=== PATIENT | female | born 1995 | race Caucasian/White ===

== ENCOUNTER → 2021-12-18 12:09 | Outpatient (CLI) | payer OTHER, SELFPAY ==
[2021-12-18 12:57] LABS: Add Manual Diff / Slide Review NO; Basophils Absolute Auto 100 /uL (0-100); Basophils Percent Auto 0.6 % (0-2); Eosinophils Absolute Auto 100 /uL (0-450); Eosinophils Percent Auto 1.5 % (2-4); Hematocrit 38.7 % (36-46); Hemoglobin 13.5 g/dL (12.0-16.0); Lymphocytes Absolute Auto 2300 /uL (1100-4500); Lymphocytes Percent Auto 26.8 % (25-40); Mean Corpuscular HGB Conc 34.9 % (30-36); Mean Corpuscular Hemoglobin 30.5 PG (26-34); Mean Corpuscular Volume 87.3 fL (80-100); Monocytes Absolute Auto 500 /uL (0-900); Monocytes Percent Auto 5.3 % (3-14); Neutrophils Absolute Auto 5700 /uL (1500-7000); Neutrophils Percent Auto 65.8 % (50-75); Platelet Count 284 X10^3/uL (150-400); Red Blood Cell Count 4.43 X10^6/uL (4.0-5.2); Red Cell Distribution Width 15.4 % (11.6-14.8); White Blood Cell Count 8.7 X10^3/uL (4.5-11.0)
[2021-12-18 13:40] LABS: Free T3, Triiodothyronine Free 3.37 pg/mL (2.77-5.27); Free T4, Direct Thyroxine 1.18 ng/dL (0.78-2.19)
[2021-12-18 13:53] LABS: Thyroid Stimulating Hormone 1.21 uIU/mL (0.47-4.68)
[2021-12-18 17:18] LABS: Hepatitis B Surface Antigen NEGATIVE s/c (NEGATIVE); Rubella Antibody IgG 57.1 IU/mL (>15)
[2021-12-18 17:34] LABS: HIV 1 & 2 Ab/Ag 4th Gen Combo NEGATIVE (NEGATIVE); Hep C Virus Ab w/Reflex Quant NEGATIVE s/c (NEGATIVE)
[2021-12-19 06:25] LABS: RPR Screen Non Reactive (Non Reactive)
[2021-12-19 12:02] LABS: Varicella IgG Antibody 412 index (Immune >165)
== END ==
PROVIDERS: PCP Physician Assistant; Referring Provider Obstetrics & Gynecology; Visit Provider Obstetrics & Gynecology
DX: Z34.01 Encounter for supervision of normal first pregnancy, first trimester (principal); E03.9 Hypothyroidism, unspecified; Z3A.09 9 weeks gestation of pregnancy
CPT/HCPCS: 36415; 80055; 84439; 84443; 84481; 86787; 86803; 86850; 86900; 86901; 87389

== ENCOUNTER → 2022-01-08 14:28 | Outpatient (CLI) | payer OTHER, SELFPAY ==
[2022-01-08 19:36] LABS: Urine N gonorrhoeae NOT DETECTED
[2022-01-08 20:00] LABS: Urine Chlamydia NOT DETECTED
== END ==
PROVIDERS: PCP Physician Assistant; Visit Provider Physician Assistant Medical
DX: Z34.01 Encounter for supervision of normal first pregnancy, first trimester (principal); Z3A.13 13 weeks gestation of pregnancy
CPT/HCPCS: 87491; 87591

== ENCOUNTER 2022-02-05 14:42 | Emergency (ER) | payer OTHER, SELFPAY ==
[2022-02-05] VITALS (18 sets, daily range): BP systolic 98–141; BP diastolic 53–79; PULSE 46–86; RESP 16–29; O2SAT 98–100; BMI 20.1
--- NOTE | 2022-02-05 14:50 | DI.RAD.S_ITS ---
PROCEDURE: XR CHEST 1V INDICATIONS: chest pain TECHNIQUE: One view of the chest was acquired. COMPARISON: None. FINDINGS: Surgical changes and devices: None. Lungs and pleura: Lungs are clear. No pleural effusions or pneumothorax. Mediastinum: Mediastinal contours appear normal. Heart size is normal. Bones and chest wall: No suspicious bony lesions. Overlying soft tissues appear unremarkable. IMPRESSION: No acute process. Dictated by: Christine Yu M.D. on 02/05/2022 at 15:44 Approved by: Christine Yu M.D. on 02/05/2022 at 15:44
--- NOTE | 2022-02-05 15:10 | ED_ITS ---
HPI - Arrhythmia/Palpitations General Chief Complaint: Arrhythmia/Palpitations Stated Complaint: High heartrate, abnormal ekg per dr. bowen Time Seen by Provider: 02/05/22 14:55 Source: patient Mode of arrival: Ambulatory Limitations: no limitations History of Present Illness HPI narrative: This is a 26-year-old female who is 17 weeks who was sent over by her OBGYN for initially heart rate through the weekend and then low heart rate in the 30s to 40s yesterday and today in the office and with home pulse oximeter. Patient states that she has not had any syncope or lightheadedness but has felt short of breath particularly with exertion after a couple minutes she states her heart rate was 110 to 120s Saturday and Saturday was in the 40s and when she tried to go up the stairs and went down to 33. She denies any chest pain or pressure. No new swelling in extremities, no nausea, no vomiting no diarrhea no constipation, no urinary symptoms other than some frequency. She has not had any uterine contractions, fluid or vaginal bleeding. Patient states she was started on levothyroxine 3 or 4 months ago for hypothyroidism which was new. She is a history of wisdom teeth removal but no other surgeries. No tobacco, no alcohol no illicit. Mom has abnormal heartbeats, grandpa has AFib help siblings are healthy. Related Data Home Medications Medication Instructions Recorded Confirmed L.acidoph, paracasei,B. lactis 10 cell PO 11/14/21 02/05/22 billion cell capsule (Digestive Advantage Advanced Probiotic) folic acid 800 mcg tablet 0.8 mg PO DAILY 11/14/21 02/05/22 levothyroxine 25 mcg tablet 25 mcg PO DAILY 11/14/21 02/05/22 multivitamin,min-ferrous fumarate tab PO 11/14/21 02/05/22 3.3 mg-folic 25 mcg-herb tablet prenat.vits,sandra,afa-mikg-pbyxp 1 tab PO DAILY 11/14/21 02/05/22 Allergies Allergy/AdvReac Type Severity Reaction Status Date / Time No Known Allergies Allergy Verified 02/05/22 14:58 Review of Systems Review of Systems ROS Unobtainable: All systems reviewed & are unremarkable except as noted in HPI and below Patient History Medical History (Updated 02/05/22 @ 20:28 by Vane Sanchez DO) Anemia (~2011) Psoriasis Surgical History (Updated 12/10/21 @ 21:01 by Areli Broderick) Anesthesia [place] teeth extracted Family History (Updated 12/10/21 @ 21:07 by Areli Broderick) Grandfather Crohn's disease Myocardial infarction Skin cancer History of heart disease Hyperlipidemia Hypertension Grandmother Breast cancer Diabetes mellitus Skin cancer Hyperlipidemia Hypertension Dementia Mother Hypertension Social History marital status: number of children: 0 household members: spouse lives independently: Yes housing: house pets and animals: Yes (1 small dog) education level: college (associates degree) 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) current occupational exposures/hazards: No special saw needs: No travel history: over 6 months ago seatbelt use: always helmet use: No (has not previously, but agrees to now.) water heater temp set < 120 deg: No (Will have dad (coordinator of library services) check and adjust) working smoke detector in home: Yes fire extinguisher in home: Yes carbon monox detector in home: Yes firearms in home: No do you feel safe at home: Yes Smoking Status: Never smoker second hand exposure: No alcohol intake: former substance use type: does not use during the past year weight has: remained stable well-balanced diet: daily or most days daily servings fruits/ve-4 caffeine: Yes (rarely) Type(s) of exercise: walking and bicycling frequency: 3-4 times per week Smoking Status: Never smoker Substance Use Type: does not use Exam Narrative Exam Narrative: GENERAL: Alert and oriented x three, well-appearing female in mild distress. Patient was encountered walking back from the and sat down on the bed. HEENT: Head normocephalic, atraumatic, EOMI, pupils reactive, face symmetric, moist mucous membranes NECK: Supple, full range of motion CARDIOVASCULAR: Bradycardic but Regular rate and rhythm without murmurs, rubs or gallops. No JVD. No swelling bilateral lower extremities. RESPIRATORY: Breath sounds equal bilaterally, no wheezes rales or rhonchi. No tachypnea, no accessory muscle use. No crackles. ABDOMEN: Soft, nontender. Normoactive bowel sounds all 4 quadrants. No guarding or rebound, rigidity, no mass : No CVA tenderness EXTREMITIES: Normal range of motion, no clubbing or edema. Neurovascularly intact NEUROLOGICAL: Cranial nerves II through XII grossly intact. Moving all extremities SKIN: Warm, dry, no petechiae, no rashes or lesions. Initial Vital Signs Initial Vital Signs: Vital Signs Pulse Rate 51 L 02/05/22 14:56 Respiratory Rate 20 02/05/22 14:56 Blood Pressure 141/71 H 02/05/22 14:56 Pulse Oximetry 98 02/05/22 14:56 Oxygen Delivery Method 02/05/22 14:56 Course Orders Ordered: ED Orders 02/05/22 14:30 Alpha Fetoprotein Stat Complete Blood Count AUTO DIFF Stat Comprehensive Metabolic Panel Stat Free T3, Triiodothyronine Free Stat Free T4, Direct Thyroxine Stat Lipase Stat Magnesium Stat TSH [Thyroid Stimulating Hormone] Stat Troponin & CK Cardiac Panel Stat 02/05/22 14:50 XR chest 1V Stat EKG-12 Lead Stat 02/05/22 15:10 EC echo doppler complete Stat 02/05/22 15:30 COVID19 -Nasal RAPID/Pre-Proc Stat Consultations Consultation #1: Dr. Serrano, cardiology at [facility]. Asked her assist with interpretation of EKG catherine pect a third-degree heart block with junctional rhythm intermittently. Patient is currently and would benefit from M so not appropriate candidate for [facility]./ Consultation #2: Dr. Bustamante, CCU attending at [facility] accepts for transfer. Discussed patient has not been hypotensive has had either a high second-degree block or third-degree. No electrolyte, thyroid or other abnormalities have been found to be cause suspect -induced cardiomyopathy. We do not have echo available but will attempt to get prior to transfer. Vital Signs Vital signs: Vital Signs - 8 hr 02/05/22 14:56 02/05/22 15:00 02/05/22 15:15 Pulse Rate 51 L 51 L Respiratory Rate 20 20 Blood Pressure 141/71 H 135/79 Pulse Oximetry 98 100 Oxygen Delivery Method Room Air Room Air 02/05/22 15:15 02/05/22 15:30 02/05/22 15:31 Pulse Rate 51 L 53 L Respiratory Rate 19 24 Blood Pressure 138/75 Pulse Oximetry 99 99 Oxygen Delivery Method 02/05/22 15:31 02/05/22 15:45 02/05/22 15:45 Pulse Rate 54 L 49 L Respiratory Rate 22 20 Blood Pressure 114/58 L Pulse Oximetry 99 98 Oxygen Delivery Method 02/05/22 16:00 02/05/22 16:00 02/05/22 16:15 Pulse Rate 49 L Respiratory Rate 24 Blood Pressure 111/66 98/55 L Pulse Oximetry 99 Oxygen Delivery Method 02/05/22 16:15 02/05/22 16:30 02/05/22 16:30 Pulse Rate 49 L 50 L Respiratory Rate 20 18 Blood Pressure 131/69 Pulse Oximetry 99 99 Oxygen Delivery Method Room Air 02/05/22 16:45 02/05/22 16:45 02/05/22 17:00 Pulse Rate 48 L Respiratory Rate 27 H Blood Pressure 115/58 L 112/59 L Pulse Oximetry 99 Oxygen Delivery Method 02/05/22 17:00 02/05/22 17:15 02/05/22 17:15 Pulse Rate 48 L 50 L Respiratory Rate 16 19 Blood Pressure 116/61 Pulse Oximetry 99 99 Oxygen Delivery Method 02/05/22 17:30 02/05/22 17:30 02/05/22 17:45 Pulse Rate 50 L Respiratory Rate 27 H Blood Pressure 120/65 109/53 L Pulse Oximetry 98 Oxygen Delivery Method 02/05/22 17:45 02/05/22 18:00 02/05/22 18:00 Pulse Rate 46 L 54 L Respiratory Rate 21 20 Blood Pressure 100/58 L Pulse Oximetry 98 99 Oxygen Delivery Method Room Air 02/05/22 18:15 02/05/22 18:15 02/05/22 18:30 Pulse Rate 86 Respiratory Rate 19 Blood Pressure 119/56 L 113/61 Pulse Oximetry 100 Oxygen Delivery Method 02/05/22 18:30 02/05/22 18:45 02/05/22 18:45 Pulse Rate 57 L 82 Respiratory Rate 29 H 18 Blood Pressure 111/60 Pulse Oximetry 100 98 Oxygen Delivery Method Room Air MDM - Arrhythmia/Palpitations Lab Data Result diagrams: 02/05/22 14:30 02/05/22 14:30 Labs: Lab Results 02/05/22 02/05/22 02/05/22 Range/Units 14:30 14:30 14:30 WBC 14.2 H (4.5-11.0) X10^3/uL RBC 4.18 (4.0-5.2) X10^6/uL Hgb 12.9 (12.0-16.0) g/dL Hct 37.8 (36-46) % MCV 90.4 (80-100) fL MCH 30.8 (26-34) PG MCHC 34.1 (30-36) % RDW 15.1 H (11.6-14.8) % Plt Count 255 (150-400) X10^3/uL Neut % (Auto) 76.4 H (50-75) % Lymph % (Auto) 17.1 L (25-40) % [place] % (Auto) 5.2 (3-14) % Eos % (Auto) 1.0 L (2-4) % Baso % (Auto) 0.3 (0-2) % Neut # (Auto) 34882 H (6176-9433) /uL Lymph # (Auto) 2400 (3611-1300) /uL [place] # (Auto) 700 (0-900) /uL Eos # (Auto) 100 (0-450) /uL Baso # (Auto) 0 (0-100) /uL Sodium 138 (137-145) mmol/L Potassium 3.9 (3.4-5.1) mmol/L Chloride 103 (98-107) mmol/L Carbon Dioxide 23 (22-32) mmol/L BUN 7 (7-17) mg/dL Creatinine 0.60 (0.52-1.04) mg/dL Estimated GFR > 60 (>60) mL/min BUN/Creatinine Ratio 11.7 (6-22) Glucose 88 (70-100) mg/dL Calcium 8.7 (8.4-10.2) mg/dL Magnesium 1.9 (1.6-2.3) mg/dL Total Bilirubin 0.3 (0.2-1.3) mg/dL AST 33 (14-36) IU/L ALT 26 (<35) IU/L Alkaline Phosphatase 60 (38-126) U/L Total Creatine Kinase 43 (30-135) U/L CK-MB (CK-2) TNP CK-MB (CK-2) Rel Index TNP Troponin I < 0.012 (0.01-0.034) ng/mL Total Protein 7.5 (6.3-8.2) g/dL Albumin 4.0 (3.5-5.0) g/dL Globulin 3.5 (1.7-4.1) g/dL Albumin/Globulin Ratio 1.1 (1.0-2.8) Lipase 96 (23-300) U/L TSH 1.60 (0.47-4.68) uIU/mL Free T4 1.19 (0.78-2.19) ng/dL Free T3 3.00 (2.77-5.27) pg/mL SARS-CoV-2 (PCR) (Negative) 02/05/22 Range/Units 15:30 WBC (4.5-11.0) X10^3/uL RBC (4.0-5.2) X10^6/uL Hgb (12.0-16.0) g/dL Hct (36-46) % MCV (80-100) fL MCH (26-34) PG MCHC (30-36) % RDW (11.6-14.8) % Plt Count (150-400) X10^3/uL Neut % (Auto) (50-75) % Lymph % (Auto) (25-40) % [place] % (Auto) (3-14) % Eos % (Auto) (2-4) % Baso % (Auto) (0-2) % Neut # (Auto) (3436-6052) /uL Lymph # (Auto) (0708-3053) /uL [place] # (Auto) (0-900) /uL Eos # (Auto) (0-450) /uL Baso # (Auto) (0-100) /uL Sodium (137-145) mmol/L Potassium (3.4-5.1) mmol/L Chloride (98-107) mmol/L Carbon Dioxide (22-32) mmol/L BUN (7-17) mg/dL Creatinine (0.52-1.04) mg/dL Estimated GFR (>60) mL/min BUN/Creatinine Ratio (6-22) Glucose (70-100) mg/dL Calcium (8.4-10.2) mg/dL Magnesium (1.6-2.3) mg/dL Total Bilirubin (0.2-1.3) mg/dL AST (14-36) IU/L ALT (<35) IU/L Alkaline Phosphatase (38-126) U/L Total Creatine Kinase (30-135) U/L CK-MB (CK-2) CK-MB (CK-2) Rel Index Troponin I (0.01-0.034) ng/mL Total Protein (6.3-8.2) g/dL Albumin (3.5-5.0) g/dL Globulin (1.7-4.1) g/dL Albumin/Globulin Ratio (1.0-2.8) Lipase (23-300) U/L TSH (0.47-4.68) uIU/mL Free T4 (0.78-2.19) ng/dL Free T3 (2.77-5.27) pg/mL SARS-CoV-2 (PCR) Negative (Negative) Imaging Data Chest x-ray: Radiologist's Impresson: [address] [address] XRay Report Signed Patient: Sugar Jackson MR#: [id number] : 1995 Acct:[id number] Age/Sex: 26 / F Date of Service: 02/05/22 Loc: ED Accession Number: [id number] ?? Procedure: XR chest 1V Ordering Provider: Vane Sanchez D.O. PROCEDURE:? XR CHEST 1V ? INDICATIONS:? chest pain ? TECHNIQUE:? One view of the chest was acquired.? ? COMPARISON:? None. ? FINDINGS:? ? Surgical changes and devices:? None.? ? Lungs and pleura:? Lungs are clear.? No pleural effusions or pneumothorax.? ? Mediastinum:? Mediastinal contours appear normal.? Heart size is normal.? ? Bones and chest wall:? No suspicious bony lesions.? Overlying soft tissues appear unremarkable.? ? IMPRESSION:? No acute process. ? ? Dictated by: Christine Yu M.D. on 02/05/2022 at 15:44 ? ? Approved by: Christine Yu M.D. on 02/05/2022 at 15:44?? ECHO: Radiologist's Impresson: [address] [address] Echocardiography Report Signed Patient: Sugar Jackson MR#: [id number] : 1995 Acct:[id number] Age/Sex: 26 / F Date of Service: 02/05/22 Loc: ED Accession Number: [id number] ?? Procedure: EC echo doppler complete Ordering Provider: Vane Sanchez D.O. ? [facility]? +---------+ : ? :? [address] ? : ? : : ? :? [place] ? : ? : : ? :? [id number] ? : ? : : ? : ? Phone: [phone]? : ? : [phone]? [phone]? +---------+ ? Echocardiogram Report + + :Name: SUGAR JACKSON ? ? ? Study Date: 02/05/2022 ? Height: 65 in? : :[facility] ? ? ReadingLocation: ? Weight: 121 lb : : ? Gender: Female ? BSA: 1.6 m2? ? : :: 1995? Age: 26 yrs? BP: 131/69 mmHg: :Reason For Study: HIGH DEGREE AV BLOCK, ? : :Ordering Physician: LAURA,? : :VANE ? Performed By: Brenda Whyte? : :Referring: VANE SANCHEZ? : + + Interpretation Summary Normal echo study. ? Procedure: ? A two-dimensional transthoracic echocardiogram with color flow and Doppler was performed. The study quality was technically adequate. There is no prior echocardiogram noted for this patient. The heart rate ranged between 46-73 bpm during the study. Left Ventricle: ? The left ventricle is normal in size and wall thickness. The ejection fraction is estimated to be 60-65%. Left ventricular wall motion is normal. Right Ventricle: ? The right ventricle is normal in size and function. Atria: ? The left atrial size is normal. Right atrial size is normal. Mitral Valve: ? The mitral valve is normal in structure and function. There is trace mitral regurgitation. Aortic Valve: ? The aortic valve is trileaflet. The aortic valve opens well. There is no aortic valve stenosis. No aortic regurgitation is present. Tricuspid Valve: ? The tricuspid valve is normal in structure and function. There is trace tricuspid regurgitation. Pulmonic Valve: ? The pulmonic valve is not well seen, but is grossly normal. There is no pulmonic valvular regurgitation. Great Vessels: ? The aortic root is normal size. The ascending aorta could not be visualized. The IVC is of normal diameter and collapses greater than 50% with a sniff. This suggests a low right atrial pressure of 3 mm Hg. Pericardium/ Pleura ? There is no pericardial effusion. There is no pleural effusion. ? MMode/2D Measurements & Calculations LVIDd: 4.1 cm? LVOT diam: 1.8 cm LVIDs: 2.4 cm? Ao root diam: 2.6 cm FS: 39.9 % ? Ao Arch Diam (Prox Trans): 2.1 cm EPSS: 0.28 cm IVSd: 0.75 cm LVPWd: 0.81 cm LV lim. diameter/BSA (cm/m^2): 2.5 LV sys. diameter/BSA (cm/m^2): 1.5 ? LA A2 area: 17.7 cm2 ? RA long axis: 4.5 cm LA A4 area: 16.3 cm2 ? RA area: 13.2 cm2 LA length (vol): 4.6 cm? RA vol: 33.1 ml LA vol: 53.1 ml? RA : 20.7 ml/m2 LA vol index: 33.3 ml/m2 ? IVC diam: 2.0 cm ? RVD1 (basal): 3.5 cm RVD2 (mid): 3.2 cm TAPSE: 2.6 cm ? Doppler Measurements & Calculations Ao V2 max: 166.7 cm/sec? LVOT Max João: 136.7 cm/sec Ao V2 mean: 106.8 cm/sec ? LV V1 max P.5 mmHg Ao max P.1 mmHg ? LV V1 VTI: 26.4 cm Ao mean P.3 mmHg ? EFREN(I,D): 1.9 cm2 Ao V2 VTI: 35.0 cm ? EFREN(V,D): 2.1 cm2 ? sev ratio: 0.75 ? EFREN indexed to BSA (cm^2/m^2): 1.2 ? MV E max joão: 96.8 cm/sec? PA V2 max: 108.1 cm/sec MV A max joão: 54.7 cm/sec? PA V2 mean: 73.2 cm/sec MV E/A: 1.8? PA mean P.4 mmHg Med Peak E' João: 14.1 cm/sec ? ? ? PA pr(Accel): 31.0 mmHg E/E' med: 6.9 Lat Peak E' João: 23.9 cm/sec E/E' lat: 4.0 E/e' average: 5.4 MV dec time: 0.26 sec ? SV(LVOT): 66.7 ml ? Electronically signed by: Brittani Wolf on Reading Physician:02/05/2022 08:18 PM ECG Data Attestation: I personally reviewed and interpreted this ECG as follows: Interpretation: Patient appears to have either third-degree block or very high-grade 2nd with a rate of 52 QRS of 78 and QTC of 407. MDM Narrative Medical decision making narrative: This is a 26-year-old female who presents with complaint of earlier heart rate earlier in the week and low heart rate for the past 2 days was found to be in the 30s to 40s at her OBGYN visit today. She appears to be in either high AV block or third-degree block on her EKGs here although her blood pressure is appropriate and she does not appear unstable otherwise. Atropine was placed at bedside with pacer pads. Patient had occasional burst into the 80s and back down. EKG was discussed with Dr. Bhandari who is a upholstery mechanic at [facility] reviewed images and suspects a third-degree heart block with occasional raquel ctional rhythm. Because of patient's 17 week plan to seek placement [facility]. Labs do not show any major electrolyte, cardiac or thyroid abnormalities that would clearly cause her symptoms chest x-ray is normal without any changes to structure. Patient was accepted for [facility] and transferred. Echo was performed but was not resulted prior transfer. Critical Care Time Critical Care Time Critical Care Time: Yes Total Critical Care Time: 38 Attestation: The high probability of a clinically significant, sudden or life threatening deterioration of the [cardiac] system(s) required my full and direct attention, intervention and personal management. The aggregate critical care time was [] minutes. This time is in addition to time spent performing reported procedures but includes the following: [x] Data Review and interpretation [x] Patient assessment and monitoring of vital signs [x] Documentation [x] Medication orders and management Discharge Plan Departure Patient Disposition: [facility] Clinical Impression: Heart block, 17 weeks gestation of Prescriptions: No Action prenat.vits,sandra,jle-piio-ssxzm Tablet 1 tab PO DAILY multivit rgo-flzl-PR-herb 186 3.3 mg iron-25 mcg tablet PO folic acid 800 mcg tablet 0.8 mg PO DAILY levothyroxine 25 mcg tablet 25 mcg PO DAILY Digestive Advantage Advanced 10 billion cell capsule PO
--- NOTE | 2022-02-05 15:10 | DI.ECHO.S_ITS ---
[facility] +---------+ : : [address] : [place] : : : : [id number] : : : : Phone: [phone] : [phone] +---------+ Echocardiogram Report + + :Name: ROXANA MORAES Study Date: 02/05/2022 Height: 65 in : :[facility] ReadingLocation: Weight: 121 lb : : Gender: Female BSA: 1.6 m2 : :: 1995 Age: 26 yrs BP: 131/69 mmHg: :Reason For Study: HIGH DEGREE AV BLOCK, : :Ordering Physician: LAURA, : :BRANDON Performed By: Brenda Whyte : :Referring: BRANDON SANCHEZ : + + Interpretation Summary Normal echo study. Procedure: A two-dimensional transthoracic echocardiogram with color flow and Doppler was performed. The study quality was technically adequate. There is no prior echocardiogram noted for this patient. The heart rate ranged between 46-73 bpm during the study. Left Ventricle: The left ventricle is normal in size and wall thickness. The ejection fraction is estimated to be 60-65%. Left ventricular wall motion is normal. Right Ventricle: The right ventricle is normal in size and function. Atria: The left atrial size is normal. Right atrial size is normal. Mitral Valve: The mitral valve is normal in structure and function. There is trace mitral regurgitation. Aortic Valve: The aortic valve is trileaflet. The aortic valve opens well. There is no aortic valve stenosis. No aortic regurgitation is present. Tricuspid Valve: The tricuspid valve is normal in structure and function. There is trace tricuspid regurgitation. Pulmonic Valve: The pulmonic valve is not well seen, but is grossly normal. There is no pulmonic valvular regurgitation. Great Vessels: The aortic root is normal size. The ascending aorta could not be visualized. The IVC is of normal diameter and collapses greater than 50% with a sniff. This suggests a low right atrial pressure of 3 mm Hg. Pericardium/ Pleura There is no pericardial effusion. There is no pleural effusion. MMode/2D Measurements & Calculations LVIDd: 4.1 cm LVOT diam: 1.8 cm LVIDs: 2.4 cm Ao root diam: 2.6 cm FS: 39.9 % Ao Arch Diam (Prox Trans): 2.1 cm EPSS: 0.28 cm IVSd: 0.75 cm LVPWd: 0.81 cm LV lim. diameter/BSA (cm/m^2): 2.5 LV sys. diameter/BSA (cm/m^2): 1.5 LA A2 area: 17.7 cm2 RA long axis: 4.5 cm LA A4 area: 16.3 cm2 RA area: 13.2 cm2 LA length (vol): 4.6 cm RA vol: 33.1 ml LA vol: 53.1 ml RA : 20.7 ml/m2 LA vol index: 33.3 ml/m2 IVC diam: 2.0 cm RVD1 (basal): 3.5 cm RVD2 (mid): 3.2 cm TAPSE: 2.6 cm Doppler Measurements & Calculations Ao V2 max: 166.7 cm/sec LVOT Max João: 136.7 cm/sec Ao V2 mean: 106.8 cm/sec LV V1 max P.5 mmHg Ao max P.1 mmHg LV V1 VTI: 26.4 cm Ao mean P.3 mmHg EFREN(I,D): 1.9 cm2 Ao V2 VTI: 35.0 cm EFREN(V,D): 2.1 cm2 sev ratio: 0.75 EFREN indexed to BSA (cm^2/m^2): 1.2 MV E max joão: 96.8 cm/sec PA V2 max: 108.1 cm/sec MV A max joão: 54.7 cm/sec PA V2 mean: 73.2 cm/sec MV E/A: 1.8 PA mean P.4 mmHg Med Peak E' João: 14.1 cm/sec PA pr(Accel): 31.0 mmHg E/E' med: 6.9 Lat Peak E' João: 23.9 cm/sec E/E' lat: 4.0 E/e' average: 5.4 MV dec time: 0.26 sec SV(LVOT): 66.7 ml Electronically signed by: Brittani Wolf on Reading Physician:02/05/2022 08:18 PM
[2022-02-05 15:15] LABS: Add Manual Diff / Slide Review NO; Basophils Absolute Auto 0 /uL (0-100); Basophils Percent Auto 0.3 % (0-2); Eosinophils Absolute Auto 100 /uL (0-450); Hematocrit 37.8 % (36-46); Hemoglobin 12.9 g/dL (12.0-16.0); Lymphocytes Absolute Auto 2400 /uL (1100-4500); Lymphocytes Percent Auto 17.1 % (25-40); Mean Corpuscular HGB Conc 34.1 % (30-36); Mean Corpuscular Hemoglobin 30.8 PG (26-34); Mean Corpuscular Volume 90.4 fL (80-100); Monocytes Absolute Auto 700 /uL (0-900); Monocytes Percent Auto 5.2 % (3-14); Neutrophils Absolute Auto 10900 /uL (1500-7000); Neutrophils Percent Auto 76.4 % (50-75); Platelet Count 255 X10^3/uL (150-400); Red Blood Cell Count 4.18 X10^6/uL (4.0-5.2); Red Cell Distribution Width 15.1 % (11.6-14.8); White Blood Cell Count 14.2 X10^3/uL (4.5-11.0)
[2022-02-05 15:37] LABS: Alanine Aminotransferase 26 IU/L (<35); Albumin Globulin Ratio 1.1 (1.0-2.8); Alkaline Phosphatase 60 U/L (38-126); Aspartate Aminotransferase 33 IU/L (14-36); BUN Creatinine Ratio 11.7 (6-22); Bilirubin Total 0.3 mg/dL (0.2-1.3); Blood Urea Nitrogen 7 mg/dL (7-17); Calcium 8.7 mg/dL (8.4-10.2); Carbon Dioxide 23 mmol/L (22-32); Chloride 103 mmol/L (98-107); Creatine Kinase 43 U/L (30-135); Estimated Glomerular Filt Rate > 60 mL/min (>60); Globulin 3.5 g/dL (1.7-4.1); Glucose 88 mg/dL (70-100); HEMOLYSIS < 15 (0-50); Lipase 96 U/L (23-300); Magnesium 1.9 mg/dL (1.6-2.3); Potassium 3.9 mmol/L (3.4-5.1); Sodium 138 mmol/L (137-145); Total Protein 7.5 g/dL (6.3-8.2)
[2022-02-05 15:48] LABS: Troponin I < 0.012 ng/mL (0.01-0.034)
[2022-02-05 16:01] LABS: Free T4, Direct Thyroxine 1.19 ng/dL (0.78-2.19)
[2022-02-05 16:23] LABS: COVID19 -Nasal RAPID Negative (Negative)
--- NOTE | 2022-02-05 18:57 | PC.NURSE ---
/ Dr. Bustamante accepting/ 5SE, [place] / Bed ready @ 2099/ Report to [phone] atropine at bedside. Updated w/ ETA of 2099 [place] ALS 1919 ETA to [facility]
[2022-02-06 05:42] LABS: Alpha Fetoprotein 44.9 ng/mL (0.0-4.7)
== END 2022-02-05 19:55 | disposition short-term general hospital (02) ==
PROVIDERS: Emergency Provider Emergency Medicine
DX: I45.9 Conduction disorder, unspecified (principal); R07.9 Chest pain, unspecified; Z3A.17 17 weeks gestation of pregnancy; Z20.822 Contact with and (suspected) exposure to COVID-19
CPT/HCPCS: 36415; 71045; 80053; 82105; 82550; 83690; 83735; 84439; 84443; 84481; 84484; 85025; 87635; 93005; 93306; 99284; C9803

== ENCOUNTER → 2022-03-05 12:24 | Outpatient (CLI) | payer OTHER, SELFPAY ==
--- NOTE | 2022-03-05 12:26 | DI.US.S_ITS ---
PROCEDURE: US OB >= 14 WEEKS FETUS INDICATIONS: ANATOMY OUTSIDE/PRIOR DATING DATA: Last menstrual period (LMP): 10/10/2021. LMP-based estimated date of delivery (SAMIR): 07/17/2022. First dating scan (date and location): 12/11/2021. Estimated date of delivery (SAMIR) from first dating scan: 07/19/2022. Working SAMIR: 07/16/2022. TECHNIQUE: Real-time scanning was performed of the fetus, with image documentation and biometric measurements. Endovaginal scanning: Not performed COMPARISON: [facility], , OB <= 14 WEEKS FETUS, 12/11/2021, 16:18. FINDINGS: General: A single living intrauterine gestation is present. Presentation: Breech. Placenta: Placental position is anterior , without previa. Amniotic fluid index: 14.0 cm, normal range is 5-24 cm. Single deepest vertical pocket is 6.0 cm. heart rate: 141 beats per minute. Maternal cervical canal: 3 point cm long. Normal lower limit is 2.5 cm. biometrics: Biparietal diameter: 22 weeks 1 day Head circumference: 22 weeks 0 day Abdominal circumference: 23 weeks 3 days Femur length: 20 weeks 5 days Clinically estimated gestational age: 21 weeks 0 day Composite gestational age from present scan: 22 weeks 1 day Estimated weight and percentile: 481; 95%. Anatomic survey: Neuro: Ventricles are non-dilated at less than 10 mm. Cisterna magna is normal at 3-11 mm. Cerebellum is normal in size and morphology. Nuchal skin fold: Normal at less than 6 mm between 14-21 weeks gestational age. Face: Nose and lips, facial profile are normal. Spine: No evidence for spina bifida. Heart: 4-chambered heart is present, with normal ventricular outflow tracts. There is a echogenic focus in the left ventricle. Diaphragm: Diaphragm is intact. Stomach: Left-sided stomach is present. Kidneys: No hydronephrosis. Normal is less than 5 mm in 2nd trimester, less than 7 mm in 3rd trimester. Cord: 3-vessel cord has orthotopic insertion. Bladder: Normal in size. Extremities: All 4 extremities identified. Miscellaneous: There is a large cyst at midline measuring 8.2 x 4.1 x 7.7 cm. Ovaries are not visualized. IMPRESSION: 1. A single living intrauterine gestation with appropriate interval growth. 2. An echogenic focus in the left ventricle. As an isolated finding, it is of little clinical significance. 3. weight at the 95th percentile for gestational age, suggesting developing macrosomia. 4. Otherwise normal anatomic survey. 5. A large cyst at midline measuring 8.2 x 4.1 x 7.7 cm, most likely ovarian in nature but ovaries are not visualized. Please correlate with prior examinations. We strive to produce accurate, complete, and clear reports of imaging services. To assist us in improving patient care, this report was composed using standard report templates and voice recognition software. Therefore, it may contain abnormal punctuation, insertions and/or omissions. Occasional wrong-word or sound-alike substitutions may occur. Though we review the report and make efforts to correct it, we do recommend that the report be read carefully in proper context to recognize any text inaccuracies. Dictated by: Mireille Wells M.D. on 03/05/2022 at 14:28 Approved by: Mireille Wells M.D. on 03/05/2022 at 14:38
== END ==
PROVIDERS: Referring Provider Obstetrics & Gynecology; Visit Provider Obstetrics & Gynecology
DX: Z34.02 Encounter for supervision of normal first pregnancy, second trimester (principal); Z3A.22 22 weeks gestation of pregnancy
CPT/HCPCS: 36415; 76811; 82105

== ENCOUNTER → 2022-03-05 15:17 | Outpatient (CLI) | payer OTHER, SELFPAY ==
[2022-03-07 21:10] LABS: AFP Value 76.3 ng/mL (.); Insulin Dep Diabetes No (.); OSBR Risk 1IN 4664 (.); Results Report (.); Test Results *Screen Negative* (.)
== END ==
PROVIDERS: Referring Provider Obstetrics & Gynecology; Visit Provider Obstetrics & Gynecology
DX: Z34.92 Encounter for supervision of normal pregnancy, unspecified, second trimester (principal)
CPT/HCPCS: 36415; 82105

== ENCOUNTER → 2022-04-03 10:14 | Outpatient (CLI) | payer OTHER, SELFPAY ==
[2022-04-03 12:47] LABS: Hematocrit 36.6 % (36-46); Hemoglobin 12.3 g/dL (12.0-16.0)
[2022-04-03 13:27] LABS: GTT (PREG) 1 Hour PP 50gm Dose 136 mg/dL (76-139)
[2022-04-03 15:31] LABS: Free T4, Direct Thyroxine 0.96 ng/dL (0.78-2.19)
[2022-04-03 15:45] LABS: Thyroid Stimulating Hormone 1.54 uIU/mL (0.47-4.68)
== END ==
PROVIDERS: PCP Physician Assistant; Referring Provider Obstetrics & Gynecology; Visit Provider Obstetrics & Gynecology
DX: Z34.02 Encounter for supervision of normal first pregnancy, second trimester (principal); Z3A.26 26 weeks gestation of pregnancy; E03.9 Hypothyroidism, unspecified
CPT/HCPCS: 36415; 82950; 84439; 84443; 85014; 85018; 86850

== ENCOUNTER → 2022-06-25 15:12 | Outpatient (CLI) | payer OTHER, SELFPAY ==
[2022-06-26 13:25] LABS: Strep Grp B PCR NEG for Grp B Strep
== END ==
PROVIDERS: PCP Family Medicine; Visit Provider Obstetrics & Gynecology
DX: Z34.03 Encounter for supervision of normal first pregnancy, third trimester (principal); Z3A.37 37 weeks gestation of pregnancy
CPT/HCPCS: 87653

== ENCOUNTER → 2022-06-25 15:20 | Outpatient (CLI) | payer OTHER, SELFPAY ==
--- NOTE | 2022-06-25 15:21 | DI.US.S_ITS ---
PROCEDURE: US OB >= 14 WEEKS FETUS INDICATIONS: GROWTH FOLLOW UP CYSTIC PELVIC MASS OUTSIDE/PRIOR DATING DATA: Last menstrual period (LMP): 10/10/2021. LMP-based estimated date of delivery (SAMIR): 07/17/2022. First dating scan (date and location): 12/11/2021. Estimated date of delivery (SAMIR) from first dating scan: 07/16/2022. The calculations are made using the working SAMIR of 07/16/2022. TECHNIQUE: Real-time scanning was performed of the fetus, with image documentation and biometric measurements. Endovaginal scanning: Not performed. COMPARISON: [facility], OB >= 14 WEEKS FETUS, 03/05/2022, 12:42. [facility], OB <= 14 WEEKS FETUS, 12/11/2021, 16:18. [facility], OB >= 14 WEEKS FETUS, 05/11/2022, 15:30. FINDINGS: General: A single living intrauterine gestation is present. Presentation: Vertex. Placenta: Placental position is anterior, without previa. Amniotic fluid index: 18.7 cm, normal range is 5-24 cm. Single deepest vertical pocket is 5.2 cm. heart rate: 145 beats per minute. Maternal cervical canal: Mild visualized > biometrics: Biparietal diameter: 36 weeks 0 day Head circumference: 35 weeks 1 day Abdominal circumference: 38 weeks 3 days Femur length: 35 weeks 3 days Clinically estimated gestational age: 37 weeks 0 day Composite gestational age from present scan: 36 weeks 2 days Estimated weight and percentile: 3140 g; 61%. Anatomic survey: Neuro: Ventricles are non-dilated at less than 10 mm. Cisterna magna is normal at 3-11 mm. Cerebellum is normal in size and morphology. Nuchal skin fold: Normal at less than 6 mm between 14-21 weeks gestational age. Face: Nose and lips, facial profile are normal. Spine: No evidence for spina bifida. Heart: 4-chambered heart is present, with normal ventricular outflow tracts. Diaphragm: Diaphragm is intact. Stomach: Left-sided stomach is present. Kidneys: No hydronephrosis. Normal is less than 5 mm in 2nd trimester, less than 7 mm in 3rd trimester. Cord: 3-vessel cord has orthotopic insertion. Bladder: Normal in size. Extremities: All 4 extremities identified. Other: head measurement is difficult due to low position. The cystic pelvic mass seen on the last exam is not visualized on the current exam. IMPRESSION: 1. A single living intrauterine gestation redemonstrated. There is appropriate interval growth. 2. The weight is estimated at 3140 g; 61 percentile for gestational age. We strive to produce accurate, complete, and clear reports of imaging services. To assist us in improving patient care, this report was composed using standard report templates and voice recognition software. Therefore, it may contain abnormal punctuation, insertions and/or omissions. Occasional wrong-word or sound-alike substitutions may occur. Though we review the report and make efforts to correct it, we do recommend that the report be read carefully in proper context to recognize any text inaccuracies. Dictated by: Mireille Wells M.D. on 06/25/2022 at 19:06 Approved by: Mireille Wells M.D. on 06/25/2022 at 19:15
== END ==
PROVIDERS: PCP Family Medicine; Referring Provider Obstetrics & Gynecology; Visit Provider Obstetrics & Gynecology
DX: Z36.2 Encounter for other antenatal screening follow-up (principal); O99.891 Other specified diseases and conditions complicating pregnancy; N80.109 Endometriosis of ovary, unspecified side, unspecified depth; Z3A.36 36 weeks gestation of pregnancy
CPT/HCPCS: 76811; 87653

== ENCOUNTER 2022-07-16 14:00 | Outpatient (CLI) | payer OTHER, SELFPAY | END 2022-07-16 15:05 | disposition home or self-care (01) | LOC: LABOR 15:10 → OB 07-19 13:48 | PROVIDERS: PCP Family Medicine; Referring Provider Obstetrics & Gynecology; Visit Provider Obstetrics & Gynecology | DX: O48.0 Post-term pregnancy (principal); Z3A.40 40 weeks gestation of pregnancy | CPT/HCPCS: 59025; G0378; G0379 ==

== ENCOUNTER 2022-07-20 13:52 | Outpatient (CLI) | payer OTHER, SELFPAY | END 2022-07-20 15:30 | disposition home or self-care (01) | LOC: LABOR 14:55 → OB 07-25 06:58 | PROVIDERS: PCP Family Medicine; Referring Provider Obstetrics & Gynecology; Visit Provider Obstetrics & Gynecology | DX: O48.0 Post-term pregnancy (principal); Z3A.40 40 weeks gestation of pregnancy | CPT/HCPCS: 59025; 59050; G0378; G0379 ==

== ENCOUNTER 2022-07-20 19:35 | Inpatient (IN) | payer OTHER, SELFPAY ==
[2022-07-20 20:52] VITALS: BP 152/94
[2022-07-20 22:25] LABS: Add Manual Diff / Slide Review NO; Basophils Absolute Auto 0 /uL (0-100); Basophils Percent Auto 0.3 % (0-2); Eosinophils Absolute Auto 0 /uL (0-450); Eosinophils Percent Auto 0.1 % (2-4); Lymphocytes Absolute Auto 2000 /uL (1100-4500); Lymphocytes Percent Auto 14.1 % (25-40); Mean Corpuscular HGB Conc 33.3 % (30-36); Mean Corpuscular Hemoglobin 31.3 PG (26-34); Mean Corpuscular Volume 94.1 fL (80-100); Monocytes Absolute Auto 800 /uL (0-900); Monocytes Percent Auto 5.6 % (3-14); Neutrophils Absolute Auto 11400 /uL (1500-7000); Neutrophils Percent Auto 79.9 % (50-75); Platelet Count 226 X10^3/uL (150-400); Red Blood Cell Count 4.14 X10^6/uL (4.0-5.2); Red Cell Distribution Width 13.9 % (11.6-14.8); White Blood Cell Count 14.2 X10^3/uL (4.5-11.0)
[2022-07-21] MEDS: FENT 2MCG/ML BUPIV 0.125% EPI 200 MCG/100 ML PLAST..BAG 6 MCG EPIDURAL (03:00)
[2022-07-21] MEDS: LACTATED RINGERS 1,000 ML 100 ML IV ×4 (06:26→23:30)
--- NOTE | 2022-07-21 09:12 | PM.OBHP.IH.1 ---
OB HPI Date/Time Date of admission: 07/20/22 Date Patient Seen: 07/20/22 Time Patient Seen: 23:30 History of Present Condition Chief complaint: Induction SAMIR Calculator Estimated Delivery Date Method Current WG Current Estimate 07/16/22 Ultrasound #1 40w 5d Other Estimates 07/20/22 LMP (Certain) 40w 1d Estimated Gestational Age (weeks): 40+5 : 1 Para: 0 care: good care, initiated at week # (9), number of visits (13) and pounds weight gain (43) Dating criteria OB: LMP confirmed by 1st trimester US Ultrasounds: normal 1st trimester US and abnormal US findings (95%ile for growth, bilat endometriomas) Obstetrical complications: none Medical complications OB: other (hypothyroid) Indications Indication for induction OB: post dates Preadmission Labs Last OB Lab Results: Blood Type O Negative 07/20/22 20:30 Antibody Screen Positive 07/20/22 20:30 Hematocrit 39.0 % (36-46) 07/20/22 20:30 Hemoglobin 13.0 g/dL (12.0-16.0) 07/20/22 20:30 Hepatitis B Surface Antigen Negative s/c (NEGATIVE) 12/18/21 12:26 Hepatitis C Antibody Negative s/c (NEGATIVE) 12/18/21 12:26 Rubella Antibody 57.1 IU/mL (>15) 12/18/21 12:26 Varicella-Zoster IgG Antibody 412 index (Immune >165) 12/18/21 12:26 Glucose 1 Hour 136 mg/dL (76-139) 04/03/22 12:05 Group B Streptococcus (PCR) Neg for grp b strep 06/25/22 15:12 -: Chlamydia screen: negative, Gonorrhea screen: negative and Urine: negative -: PAP smear: Normal Genetic Screens: Cell-free DNA: Normal (normal male) and Alpha-fetoprotein: Normal External Labs -: Urine: negative Evaluation Evaluation Baseline heart rate: 135 Variability: Moderate (11-25) monitor accelerations: Present Monitor Decelerations: Absent Contraction Frequency (minutes): 5 Uterine Contraction Intensity: Mild Status: Category l Dilation (cm): 6 Effacement (%): 100 station: 0 Position of cervix: anterior Consistency: soft [facility] Medical History (Updated 05/31/22 @ 09:46 by Agus Medeiros MD) Anemia (~2011) Psoriasis Surgical History (Updated 12/10/21 @ 21:01 by Areli Broderick) Anesthesia [place] teeth extracted Family History (Updated 12/10/21 @ 21:07 by Areli Broderick) Grandfather Crohn's disease Myocardial infarction Skin cancer History of heart disease Hyperlipidemia Hypertension Grandmother Breast cancer Diabetes mellitus Skin cancer Hyperlipidemia Hypertension Dementia Mother Hypertension Social History marital status: number of children: 0 household members: spouse lives independently: Yes housing: house pets and animals: Yes (1 small dog) education level: college (associates degree) 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) current occupational exposures/hazards: No special saw needs: No travel history: over 6 months ago seatbelt use: always helmet use: No (has not previously, but agrees to now.) water heater temp set < 120 deg: No (Will have dad (reach lift truck driver) check and adjust) working smoke detector in home: Yes fire extinguisher in home: Yes carbon monox detector in home: Yes firearms in home: No do you feel safe at home: Yes Smoking Status: Never smoker second hand exposure: No alcohol intake: former substance use type: does not use during the past year weight has: remained stable well-balanced diet: daily or most days daily servings fruits/ve-4 caffeine: Yes (rarely) Type(s) of exercise: walking and bicycling frequency: 3-4 times per week Meds Home Medications and Allergies Home Medications Medication Instructions Recorded Confirmed Type L.acidoph, paracasei,B. lactis 10 cell PO 11/14/21 07/16/22 History billion cell capsule (Digestive Advantage Advanced Probiotic) folic acid 800 mcg tablet 0.8 mg PO DAILY 11/14/21 07/16/22 History levothyroxine 25 mcg tablet 25 mcg PO DAILY 11/14/21 07/16/22 History multivitamin,min-ferrous fumarate tab PO 11/14/21 07/16/22 History 3.3 mg-folic 25 mcg-herb tablet prenat.vits,sandra,roi-rhpv-cjsua 1 tab PO DAILY 11/14/21 07/16/22 History Allergies Allergy/AdvReac Type Severity Reaction Status Date / Time No Known Allergies Allergy Verified 07/16/22 13:20 OB Exam Narrative Exam Narrative: Generally: Patient is sitting up in bed, no acute distress Lungs: Clear to auscultation bilaterally Cardiovascular: Regular rate and rhythm Fundal height: 41 cm Estimated weight: 8-1/2 lb Extremities: No edema Objective Labs 07/20/22 20:30 Labs: Laboratory Results - last 24 hr 07/20/22 07/20/22 20:30 20:30 WBC 14.2 H RBC 4.14 Hgb 13.0 Hct 39.0 MCV 94.1 MCH 31.3 MCHC 33.3 RDW 13.9 Plt Count 226 Neut % (Auto) 79.9 H Lymph % (Auto) 14.1 L Stevens % (Auto) 5.6 Eos % (Auto) 0.1 L Baso % (Auto) 0.3 Neut # (Auto) 62278 H Lymph # (Auto) 2000 Stevens # (Auto) 800 Eos # (Auto) 0 Baso # (Auto) 0 Blood Type O Negative Antibody Screen Positive Antibody Identification Anti-D Assessment and Plan Assessment and Plan Assessment and Plan narrative: Assessment: 27-year-old 1 para 0 at 40-,5/7 weeks gestation dilated to 6 cm Plan: Artificial rupture of membranes with copious clear amniotic fluid Epidural as necessary Time Spent with Patient Total time spent with greater than 50% in coordination of care (as documented) at patient's floor/unit and/or counseling patient:: 15-24 minutes
--- NOTE | 2022-07-21 09:18 | PM.OBPNLAB ---
Date/Time Date Patient Seen: 07/21/22 Time Patient Seen: 08:45 Pain Control Pain control: epidural Pelvic Exam Dilation (cm): 10 Effacement (%): 100 station: 0 Amniotic membrane status: Ruptured Contractions Contractions on admission: regular Monitor mode: External Contraction frequency (min): 3 Contraction duration (min): 1 Contraction pattern: Regular Contraction intensity: Strong/Firm Status status: Category l Heart Rate Baseline: 130 Monitor Accelerations: Present Monitor Decelerations: Absent Monitor Variability: Moderate Assessment and Plan Assessment: active labor Plan: Comments: Assessment: 27-year-old 1 para 0 at 40-,5/7 weeks gestation with a stage II arrest of labor No further descent of the head past 0 station after 2-1/2 hours of pushing Plan: Primary section The risks, benefits, and alternatives to the procedure were explained to the patient. The risks including bleeding, infection, injury to the bowel, bladder, or ureters. We will also attempt to remove the endometriomas if possible. She understands all of these risks and agrees to proceed. A full par Q was held and consent form was signed. The OR team has been called Pediatrics notify
[2022-07-21] MEDS: CITRIC ACID/SODIUM CITRATE 15 ML SOLUTION 30 ML PO (09:35)
--- NOTE | 2022-07-21 09:42 | PM.PREOP ---
Pre-operative Note COVID-19 Criteria for continued procedure: Delay expected to result in less-positive ultimate med/surg outcome Interval Note History & Physical reviewed/Exam performed by Physician: Yes Changes to H&P: No H&P completed within 30 days and has changed as indicated here:: 07/20/22
[2022-07-21] MEDS: CEFAZOLIN 2 GM/100 ML PREMIX 100 ML IV (09:50)
--- NOTE | 2022-07-21 10:13 | SUR.OPER ---
Supine on Padded OR bed, head on pillow, safety belt at thigh, arms secured on padded arm boards at <90 degrees abduction. Bump under right buttock. Legs uncrossed, gel pad to heels, tape over blanket to lower legs.
--- NOTE | 2022-07-21 10:23 | SUR.OPER ---
Viable baby boy delivered at 1018. Placenta delivered. Cord blood tubes X2 and placenta given to L&D RN.
[2022-07-21 11:11] VITALS: BP 103/80; PULSE 74; RESP 11; TEMP 37.2; O2SAT 99
--- NOTE | 2022-07-21 11:12 | PM.OBCS.1 ---
Operative Date/Time/Diagnoses Date of procedure: 07/21/22 Time of procedure: 11:12 Pre-op diagnosis: 40-5/7 weeks gestation Stage II arrest of labor Contracted pelvis Post-op diagnosis: same Procedure & Clinicians Same procedure as scheduled: Yes Indications: 40-,5/7 weeks gestation Contracted pelvis Stage II arrest of labor Surgeon: Yeimi Conway Lens And Frames Prescription Clerk: Roby Whittaker Reason for Lens And Frames Prescription Clerk: The assistant athletic trainer was needed for retraction upon entry into the abdomen and uterus. He assisted with delivery of the with fundal pressure. He assisted with closure with retraction and clipping of suture. He closed the contralateral fascia. Anesthesia Type: Epidural (With Duramorph) Operative Notes Findings: Live male in the ROT presentation Extensive endometriosis of the bladder, bowel, and both adnexa Normal uterus Right adnexal adhesions due to endometriosis Contracted pelvis Closure Type: primary Specimen(s): cord blood, cord pH and placenta Intraoperative meds administered: Duramorph, Ketorolac and Pitocin Applied: Catheter (To continuous drainage) Estimated Blood Loss (mL): 800 Blood products transfused: none Procedure in detail: The patient was taken to the operating room where she was placed in the dorsal lithotomy position with a leftward tilt. She was prepped and draped in the usual sterile fashion. A timeout was performed. After epidural analgesia was found to be adequate, a Pfannenstiel skin incision was made 2 fingerbreadths above the pubic symphysis and carried through to the underlying layer of fascia. The fascia was nicked in the midline, and the incision extended bilaterally with the Hui scissors. The superior aspect of the fascial incision was grasped with a Deandre clamps, elevated, and the underlying rectus muscles dissected off sharply and bluntly. Attention was then turned to the inferior aspect of this incision which in a similar fashion was grasped with a Deandre clamps, elevated, and the underlying rectus muscles dissected off sharply and bluntly. The rectus muscles were in the midline. The peritoneum was identified, grasped between 2 hemostats, and entered sharply with the Metzenbaum scissors. This incision was extended superiorly and inferiorly with good visualization of the bladder. The bladder blade was inserted. The vesicouterine peritoneum was identified, grasped with the pickup, and entered sharply with the Metzenbaum scissors. This incision was extended bilaterally, and the bladder flap was created digitally. The bladder blade was reinserted. The lower uterine segment was incised in a transverse fashion with the scalpel. Upon entering the amniotic sac there was a small amount of clear amniotic fluid. The infant's head was delivered with assistance of the nurse elevating from below. The remainder of the body delivered without difficulty. The cord was double clamped and cut. The was handed off to waiting RN and RT. a piece of cord for cord pH was obtained. Cord bloods were obtained. The placenta was delivered by expression. The uterus was cleared of all clots and debris. The uterine incision was repaired with #1 chromic in a running interlocking fashion, and a second layer the same suture was used for an imbricating layer. There was some bleeding noted from the left edge of the incision. A glwsnv-op-nwesy suture was placed for hemostasis. Hemostasis was achieved. The tubes and ovaries were examined and were found to have extensive endometriosis. The gutters were cleared of all clots and debris. The bladder flap was reapproximated using 2-0 Vicryl in a running fashion. The parietal peritoneum was closed using 2-0 Vicryl in a running fashion. The fascia was reapproximated using 0 Vicryl in a running fashion. The subcutaneous layer was copiously irrigated with warm normal saline. 6 simple interrupted sutures of 3-0 Vicryl were placed to reapproximate the subcutaneous layer. The skin was closed with 4-0 Monocryl in a subcuticular fashion. Steri-Strips were placed. An Aquacel dressing was placed. The uterus was expressed of a large amount of old blood. The fundus was marked at U -1. Sponge, lap, and instrument counts were correct x-2. The patient tolerated the procedure well, and was taken to PACU in stable condition. Complications: none [place] 1: Gender: Male Presentation: vertex Position: Right Occiput Transverse Placental Delivery Description: Expressed Cord Vessel Description: 3 Vessels and Clamped/Cut score (1 min): 8 score (5 min): 9 weight: 9 lb 0.9 oz Post-operative Condition: stable Disposition: PACU Aftercare: routine postop
[2022-07-21 11:15] VITALS: BP 137/89; PULSE 66; RESP 13; O2SAT 98
[2022-07-21 11:20] VITALS: BP 130/89; PULSE 65; RESP 15; O2SAT 98
[2022-07-21] MEDS: MEPERIDINE 50 MG/ML INJ 12.5 MG IV (11:23)
[2022-07-21 11:24] VITALS: BP 136/95; PULSE 65; RESP 15; O2SAT 97
[2022-07-21] MEDS: KETOROLAC 30 MG/ML VIAL IV ×2 (17:18→23:29)
[2022-07-22] MEDS: KETOROLAC 30 MG/ML VIAL IV (05:49)
[2022-07-22] MEDS: LEVOTHYROXINE 25 MCG TABLET PO (06:03)
[2022-07-22 06:49] LABS: Hematocrit 21.7 % (36-46); Hemoglobin 7.3 g/dL (12.0-16.0)
[2022-07-22] MEDS: ACETAMINOPHEN 325 MG TABLET 650 MG PO ×3 (08:25→21:26)
[2022-07-22] MEDS: PRENATAL VIT,CALC/IRON/FOLIC 1 TABLET 1 TAB PO (08:26)
--- NOTE | 2022-07-22 13:25 | PM.OBPN.1 ---
Subjective - OB Subjective Patient comments: no complaints, pain well controlled and tolerating diet baby status: doing well and nursing well feeding status: exclusively breast feeding Date Patient Seen: 07/22/22 Time Patient Seen: 13:25 Interval history: Postop day #1 status post primary low-transverse section for stage II arrest of labor. Patient doing well. Tolerating a diet. Pain is well controlled. Bleeding is tapering. She is ambulating without assistance. No nausea or vomiting. Exam Vital Signs (past 8 hours): Oxygen Delivery Method Room Air Narrative Exam Narrative: Generally: Patient is sitting up in bed, no acute distress Lungs: Clear to auscultation bilaterally Cardiovascular: Regular rate and rhythm Fundus: Firm at U -1 Incision: Clean dry and intact with Aquacel dressing Extremities: Trace edema, negative Homans Objective Labs 07/22/22 06:31 Labs: Laboratory Results - last 24 hr 07/22/22 06:31 Hgb 7.3 L Hct 21.7 L Assessment & Plan Plan day: 1 plan OB: routine postop care Comments: Patient with postop anemia, but asymptomatic. Anticipate discharge to December 13, 2022. Time Spent With Patient Time: Total time spent is greater than 50% in coordination of care (as documented) at patient's floor/unit and/or counseling patient: Time with patient: 15-24 minutes
[2022-07-22] MEDS: IBUPROFEN 600 MG TABLET PO ×2 (14:37→21:26)
[2022-07-22] MEDS: LANOLIN OINT 7 GM 1 APPLIC TOP (21:35)
[2022-07-23] MEDS: ACETAMINOPHEN 325 MG TABLET 650 MG PO ×2 (03:05→09:37)
[2022-07-23] MEDS: IBUPROFEN 600 MG TABLET PO ×2 (03:07→09:38)
[2022-07-23] MEDS: LEVOTHYROXINE 25 MCG TABLET PO (06:27)
[2022-07-23 08:31] LABS: Add Manual Diff / Slide Review NO; Basophils Absolute Auto 100 /uL (0-100); Basophils Percent Auto 0.4 % (0-2); Eosinophils Absolute Auto 100 /uL (0-450); Eosinophils Percent Auto 0.9 % (2-4); Hematocrit 21.3 % (36-46); Hemoglobin 7.4 g/dL (12.0-16.0); Lymphocytes Absolute Auto 2400 /uL (1100-4500); Lymphocytes Percent Auto 14.2 % (25-40); Mean Corpuscular HGB Conc 34.5 % (30-36); Mean Corpuscular Hemoglobin 32.2 PG (26-34); Mean Corpuscular Volume 93.2 fL (80-100); Monocytes Absolute Auto 800 /uL (0-900); Monocytes Percent Auto 4.8 % (3-14); Neutrophils Absolute Auto 13600 /uL (1500-7000); Neutrophils Percent Auto 79.7 % (50-75); Platelet Count 184 X10^3/uL (150-400); Red Blood Cell Count 2.29 X10^6/uL (4.0-5.2)
[2022-07-23 14:41] VITALS: BP 119/88; PULSE 80; RESP 16; TEMP 36.9
--- NOTE | 2022-08-17 11:05 | PM.OBDS.1 ---
Discharge Providers Provider Date of admission: 07/20/22 19:35 Discharge Date: 07/23/22 Primary care physician: Cj Wharton MD Consults: 07/20/22 21:43 Consult to Anesthesiology Urgent Comment: Consulting Provider: Martínez Lay Reason for consultation: Epidural 07/21/22 11:33 Consult to Mems Process Engineer Routine Comment: Discharge provider: Yeimi Conway MD Summary Hospital Course Date Patient Seen: 07/23/22 Time Patient Seen: 09:30 Diagnoses: 40+4 wks gestation Stage 2 arrest of labor Severe endometriosis Contracted pelvis Post operative anemia Hospital Course: Patient is a 27 year old who presented on 07/21 in active labor. She received an epidural for pain management. Artificial rupture of membranes was performed with clear amniotic fluid. She progessed to complete dilation and pushed for 2 1/2 hours without any further descent of the head past 0 station. She underwent a primary low transverse C section. She was found to have extensive endometriosis in the pelvis. Her postoperative course was unremarkable and she was discharged to home on 07/23. Peripartum Data Delivery Method: Section Procedures: Epidural analgesia Artificial rupture of membranes Pitocin augmentation of labor Primary low transverse C section complications: none [place] 1: Gender: Male Disposition of : home Status at Discharge Cognitive/behavioral status at discharge: oriented Functional status at discharge: independent ambulation Overall status at discharge: patient is progressing back to baseline Time Spent with Patient Time attestation: Total time spent providing and/or coordinating discharge services: Time spent: Less than 30 minutes Objective Labs 07/23/22 08:11 Exam Vital Signs (past 8 hours): Oxygen Delivery Method Room Air Narrative Exam Narrative: Generally: Pt sitting up in bed, holding , no acute distress Lungs: CTA bilaterally CV: RRR Fundus: Firm at U/-1 Incision: C/D/I with Aquacel dressing Ext: Trace edema, negative Viviana's Discharge Plan Discharge Plan Patient Disposition: Home Provider Discharge Comment: Call with fever, chills, or redness or drainage around the incision Call with bleeding more than a pad in an hour Ibuprofen 600 mg every 6 hours as needed Tylenol 650 mg every 6 hours as needed Stool softeners as needed Push oral fluids Continue vitamins Discharge orders & Medications Prescriptions: Continued prenat.vits,sandra,dkj-sseu-xwnhv Tablet 1 tab PO DAILY multivit iyu-chdh-VU-herb 186 3.3 mg iron-25 mcg tablet PO levothyroxine 25 mcg tablet 25 mcg PO DAILY Digestive Advantage Advanced 10 billion cell capsule PO Discontinued folic acid 800 mcg tablet 0.8 mg PO DAILY Follow up/Referrals: Yeimi Conway MD [Physician] - (Patient needs 6 week visit CNM will remove Aquacel when she sees patient and baby next Saturday) Kami Lorenz, ELSA, SKYLIGHTS ASSEMBLER [Advanced Supervisor Baking] - Diet/Activity/Treatments Diet: Regular Activity: No heavy lifting, nothing more than baby Skin/Wound/Dressing Care Report to your healthcare provider any signs of infection, such as:: chills, fever, increased pain, unusual drainage and unusual redness Dressing: Do not remove Visit Report/Discharge Packet Instructions: DI for , DI for Depression Stand Alone Forms: Patient Portal/API, Stroke Signs & Symptoms Discharge Data Primary Care Provider: Cj Wharton
== END 2022-07-23 13:35 | disposition home or self-care (01) | DRG 787 ==
PROVIDERS: Admitting Provider Obstetrics & Gynecology; PCP Family Medicine; Referring Provider Obstetrics & Gynecology; Visit Provider Obstetrics & Gynecology
PROC: 10D00Z1 Extraction of Products of Conception, Low, Open Approach (ICD-10-PCS; CPT 59514; principal; 2022-07-21 09:45)
DX: O62.1 Secondary uterine inertia (principal); D62 Acute posthemorrhagic anemia; O99.284 Endocrine, nutritional and metabolic diseases complicating childbirth; O99.03 Anemia complicating the puerperium; E03.9 Hypothyroidism, unspecified; O99.892 Other specified diseases and conditions complicating childbirth; M95.5 Acquired deformity of pelvis; N73.6 Female pelvic peritoneal adhesions (postinfective); N80.399 Endometriosis of the pelvic peritoneum, other specified sites, unspecified depth; Z3A.40 40 weeks gestation of pregnancy; Z37.0 Single live birth; Z67.41 Type O blood, Rh negative; O48.0 Post-term pregnancy
CPT/HCPCS: 36415; 59050; 59510; 59514; 85014; 85018; 85025; 86850; 86870; 86900; 86901; G0378; G0379; J0690; J1885; J2175; J2274; J2405

== ENCOUNTER → 2022-09-03 15:16 | Outpatient (CLI) | payer OTHER, SELFPAY ==
[2022-09-03 17:06] LABS: Free T3, Triiodothyronine Free 3.75 pg/mL (2.77-5.27); Free T4, Direct Thyroxine 1.11 ng/dL (0.78-2.19)
[2022-09-03 17:20] LABS: Thyroid Stimulating Hormone 0.866 uIU/mL (0.47-4.68)
== END ==
PROVIDERS: PCP Family Medicine; Referring Provider Physician Assistant Medical; Visit Provider Physician Assistant Medical
DX: E03.9 Hypothyroidism, unspecified (principal)
CPT/HCPCS: 36415; 84439; 84443; 84481

== ENCOUNTER 2023-10-08 08:22 | Inpatient (IN) | payer OTHER, SELFPAY ==
[2023-10-08] VITALS (15 sets, daily range): BP systolic 110–137; BP diastolic 66–91; PULSE 57–80; RESP 12–20; TEMP 36.3–37.1; O2SAT 96–100
[2023-10-08] MEDS: LACTATED RINGERS 1,000 ML 42 ML IV ×2 (08:57→12:41)
[2023-10-08] MEDS: SCOPOLAMINE 1 PATCH TOP (08:58)
--- NOTE | 2023-10-08 09:28 | PM.PREOP ---
Pre-operative Note COVID-19 COVID-19 status: Not tested Interval Note History & Physical reviewed/Exam performed by Physician: Yes Changes to H&P: No ASA Class (for procedural sedation): II
[2023-10-08] MEDS: PIPERACILLIN/TAZO 3.375 GM in SODIUM CHLORIDE 0.9% 100 ML IV (10:00)
--- NOTE | 2023-10-08 10:06 | P.OP_ITS ---
Operative Date/Time/Diagnoses Date of procedure: 10/08/23 Time of procedure: 11:49 Pre-op diagnosis: Ileostomy status Post-op diagnosis: same Procedure & Clinicians Procedure: Rigid proctoscopy Ileostomy reversal Same procedure as scheduled: Yes Surgeon: Brennan Almaguer Heat Treat Technician: Clarence Chou Anesthesia Type: General Operative Notes Procedure in detail: The patient was given preoperative Zosyn. The patient was brought to the operating room, placed on the table in the supine position and general endotracheal anesthesia was induced. The patient was then positioned in lithotomy position. A time-out was performed. Rigid proctoscopy was performed in the colorectal anastomosis was visualized and was patent. Next we repositioned in the supine position. Both limbs of the ileostomy were sutured closed with 3-0 silk suture. The abdomen was then prepped with Betadine. We started taking down ileostomy at the mucocutaneous junction with a combination of cautery and sharp dissection. Ileostomy was dissected free from the fascial ring. A few intra-abdominal adhesions were able lysed and both limbs of the ileostomy were easily delivered onto the surgical field. We then resected the ileostomy and created a [id number] functional end to end stapled anastomosis with a single firing of the linear cutting stapler with a blue load. We then closed the enterotomies with a 2 layer hand-sewn closure using running 3-0 PDS using a Carmelo stitch followed by multiple interrupted 3-0 silk imbricating sutures. The anastomosis was widely patent. The anastomosis was then dropped back into the abdominal cavity. We cleared some scar tissue off the fascial defect and then closed the anterior sheath transversely using multiple interrupted 0 Ethibond sutures. We then irrigated the wound with saline. We placed to interrupted 3-0 Vicryl dermal sutures to partially close down the skin opening and then packed with dry gauze. The patient was awakened and brought to the recovery room. EBL: 40 mL Clarence SO provided assistance with exposure, retraction and closure of incisions. Post-operative Condition: stable Disposition: PACU
[2023-10-08] MEDS: ACETAMINOPHEN IV 1,000 MG/100 ML VIAL 400 MG IV (10:45)
[2023-10-08] MEDS: BUPIVACAINE 0.25% (PF) VIAL 30 ML INJ (10:56)
[2023-10-08] MEDS: HYDROMORPHONE 1 MG INJ IV ×2 (12:13→12:22)
[2023-10-08] MEDS: ONDANSETRON 4 MG/2 ML INJ IV ×2 (12:13→16:04)
--- NOTE | 2023-10-08 12:58 | SUR.PHASEI ---
Pt transferred to room 204 by Juyd GAO with SBAR report at bedside to Emilia GAO.
[2023-10-08] MEDS: HYDROMORPHONE 0.5 MG INJ IV ×2 (16:46→20:34)
[2023-10-08] MEDS: LACTATED RINGERS 1,000 ML 100 ML IV (18:30)
[2023-10-08] MEDS: ONDANSETRON 4 MG ODT SL (20:35)
[2023-10-09] MEDS: HYDROMORPHONE 0.5 MG INJ IV ×4 (00:38→08:38)
[2023-10-09 02:34] VITALS: BP 131/64; PULSE 78; RESP 16; TEMP 37; O2SAT 96
[2023-10-09] MEDS: ONDANSETRON 4 MG ODT SL ×2 (03:05→22:06)
[2023-10-09] MEDS: LACTATED RINGERS 1,000 ML 100 ML IV ×3 (03:41→22:54)
[2023-10-09] MEDS: LEVOTHYROXINE 25 MCG TABLET PO (06:25)
[2023-10-09 08:31] VITALS: BP 100/58; PULSE 74; TEMP 36.7; O2SAT 97
--- NOTE | 2023-10-09 10:29 | CM.DANOTE ---
Initial CRACKING STILL OPERATOR Assessment Visit Note Reviewed EMR and team rounds for status updates. Met with pt at bedside to introduce self and role, pt was found to be alert/oriented, but expressing feeling fatigued, however pain is in better control today post-op day 1. She is , lives independently with her spouse here in [place]. Her spouse will plan to transport her home at discharge. Payor: Melissa Villa Medical Attending: Dr. Almaguer Pt is a 28 year-old F post-op day 1 following a planned surgery for ileostomy removal. She had surgery in July 2023 for severe endometriosis where they needed to have a resection with a diverting ileostomy placement. She has recovered well from that surgery, and has noticed more prolapsing of the ileostomy lately, and would like to have it reversed and removed. Pt completed this surgery yesterday, she is advancing her diet to clears today, and will work on advancing to solids with a home discharge anticiapted for tomorrow. No home d/c needs are anticipated at this time. CRACKING STILL OPERATOR will continue to follow and assist with any further evolving needs during this admission. Discharge Planning/Care Management CM Discharge Assessment Start: 10/09/23 09:35 Freq: Status: Active Protocol: Document 10/09/23 09:36 DPL (Rec: 10/09/23 09:37 DPL [id number]) Discharge Planning Assessment Assigned Railroad Yard Worker SERENA Verde Advance Directives? No History Provided By Patient,Medical Record Has Patient been admitted in last 30 No days? Prior Living Arrangements House Household Members spouse,children Type of transporation used prior to Drives own vehicle admit Independent with ADL's Yes Is patient alert and oriented? Yes Caregiver for Another Yes: children Comment No anticipated home d/c needs identified at this time. Barriers to Discharge No Discharge Plan Home Referrals Initiated None needed Whiteboard Updated in Patient Room with Yes name and ext. # of Railroad Yard Worker Review Status In Process Please Provide Date Initial DC 10/09/23 Assessment Was Performed Pre-Anesthesia Assessment Start: 10/02/23 14:53 Freq: Status: Complete Protocol: Document 10/02/23 14:53 CAB (Rec: 10/02/23 14:59 CAB [id number]) Pre-Anesthesia Assessment Patient Information Reviewed Via Chart Review Primary Care Provider Cj Wharton Seen Specialist in Last 12 Months Yes Specialist Seen General surgeon,Poultry Helper Primary Language Cameroonian Gas Utility Worker Required No Height 165.1 cm Weight 54.431 kg Body Mass Index (BMI) 20.0 Hearing Ability Normal Visual Impairment No Limitations Visual Assist None Dentition Type Teeth, Natural Present Barriers to Learning None Hx Anesthesia Reactions No Hx Family Anesthesia Reaction No Hx Malignant Hyperthermia No Hx Blood Transfusions No Anesthesia Review Requested No Vice President Global Digital Marketing No alcohol intake former Smoking Status Never smoker Substance Use Type does not use History of Falling (Recent or History of No ) Patient is completely paralyzed or No completely immobile Mental Status Oriented to own ability Is patient on oxygen? No Does patient have PARK/SOB No Hx Sleep Apnea No Currently Taking a Beta Vladimir No Hx Chest Pain No Hx SOB No Hx Syncope or Dizziness No Anti-Coagulant Therapy No Has a Supervisor Erection Shop No Cardiac Testing No Hx Pacemaker/ICD No Pacemaker Rep Required? No Cardiac Clearance Received Not Applicable Chronic UTI No Urinary Catheter Present No Hx Urinary Self Catheterization No Diabetes No Patient No Comment LMP 09/16/23 Presence of External or Internal Medical Yes: Ileostomy Devices Marital Status Lives With spouse,children Patient Discharge Plan Description Return Home Advance Directives? No
[2023-10-09] MEDS: ACETAMINOPHEN SUSP 650 MG/20.3 ML UDC PO ×3 (11:42→22:06)
[2023-10-09 12:09] VITALS: BP 113/73; PULSE 64; RESP 18; TEMP 36.4; O2SAT 97
--- NOTE | 2023-10-09 12:55 | PM.PN.1 ---
Subjective Subjective Date Patient Seen: 10/09/23 Time Patient Seen: 12:55 Interval history: Sugar did pass some gas today. She feels well overall but minimal appetite. Exam Vital Signs (past 8 hours): - 10/09/23 08:31 10/09/23 12:09 Temperature 98.0 F 97.6 F Pulse Rate 74 64 Respiratory Rate 18 Blood Pressure 100/58 L 113/73 Pulse Oximetry 97 97 Oxygen Flow Rate 0 Oxygen Delivery Method Room Air Oxygen Flow Rate 0 Narrative Exam Narrative: Abdomen is soft Dressing changed at old ileostomy site [facility] Medical History (Updated 10/09/23 @ 12:56 by Brennan Almaguer MD) Sinus bradycardia Psoriasis Anemia (~2011) Hypothyroidism Surgical History (Updated 10/02/23 @ 14:58 by Rashida Dykes RN) Hx of ileostomy (08/06/23) History of (07/21/22) Anesthesia [place] teeth extracted Family History Grandfather Crohn's disease Myocardial infarction Skin cancer History of heart disease Hyperlipidemia Hypertension Grandmother Breast cancer Diabetes mellitus Skin cancer Hyperlipidemia Hypertension Dementia Mother Hypertension Social History marital status: number of children: 1 household members: spouse and children lives independently: Yes housing: house pets and animals: Yes (1 small dog) education level: college occupational status: employed current occupational exposures/hazards: No special saw needs: No travel history: over 6 months ago seatbelt use: always helmet use: No (has not previously, but agrees to now.) water heater temp set < 120 deg: No (Will have dad (bisque brusher) check and adjust) working smoke detector in home: Yes fire extinguisher in home: Yes carbon monox detector in home: Yes firearms in home: No do you feel safe at home: Yes Smoking Status: Never smoker second hand exposure: No alcohol intake: never substance use type: does not use during the past year weight has: remained stable well-balanced diet: daily or most days daily servings fruits/ve-4 caffeine: Yes (rarely) Type(s) of exercise: walking and bicycling frequency: 3-4 times per week Assessment & Plan Assessment and plan (1) Postoperative examination: Status: Acute Plan Doing well Continue with dressing changes Will advance to regular tomorrow if she continues to pass gas
[2023-10-09] MEDS: ONDANSETRON 4 MG/2 ML INJ IV (13:33)
[2023-10-09 15:55] VITALS: BP 116/68; PULSE 85; RESP 18; TEMP 36.1; O2SAT 96
[2023-10-09 16:35] VITALS: BP 116/68; PULSE 85; RESP 18; TEMP 36.1; O2SAT 96
[2023-10-09 20:42] VITALS: BP 120/66; PULSE 69; RESP 16; TEMP 37; O2SAT 97
[2023-10-10 04:00] VITALS: BP 110/68; PULSE 76; RESP 18; TEMP 37; O2SAT 98
[2023-10-10] MEDS: ACETAMINOPHEN SUSP 650 MG/20.3 ML UDC PO ×2 (06:17→15:00)
[2023-10-10] MEDS: LEVOTHYROXINE 25 MCG TABLET PO (06:17)
[2023-10-10 09:41] VITALS: BP 135/71; PULSE 74; RESP 16; TEMP 36.4; O2SAT 97
--- NOTE | 2023-10-10 10:29 | PM.PN.1 ---
Subjective Subjective Date Patient Seen: 10/10/23 Time Patient Seen: 10:29 Interval history: Sugar feels well today. She has passed flatus and some liquid stool. She is tolerating diet. Her abdominal pressure. Exam Vital Signs (past 8 hours): - 10/10/23 04:00 10/10/23 09:41 Temperature 98.6 F 97.6 F Pulse Rate 76 74 Respiratory Rate 18 16 Blood Pressure 110/68 135/71 Pulse Oximetry 98 97 Oxygen Flow Rate 0 Oxygen Delivery Method Room Air Oxygen Flow Rate 0 Const General: healthy appearing and No acute distress Resp Effort & Inspection: normal respiratory effort [facility] Medical History (Updated 10/09/23 @ 12:56 by Brennan Almaguer MD) Sinus bradycardia Psoriasis Anemia (~2011) Hypothyroidism Surgical History (Updated 10/02/23 @ 14:58 by Rashida Dykes RN) Hx of ileostomy (08/06/23) History of (07/21/22) Anesthesia [place] teeth extracted Family History Grandfather Crohn's disease Myocardial infarction Skin cancer History of heart disease Hyperlipidemia Hypertension Grandmother Breast cancer Diabetes mellitus Skin cancer Hyperlipidemia Hypertension Dementia Mother Hypertension Social History marital status: number of children: 1 household members: spouse and children lives independently: Yes housing: house pets and animals: Yes (1 small dog) education level: college occupational status: employed current occupational exposures/hazards: No special saw needs: No travel history: over 6 months ago seatbelt use: always helmet use: No (has not previously, but agrees to now.) water heater temp set < 120 deg: No (Will have dad (personal carer) check and adjust) working smoke detector in home: Yes fire extinguisher in home: Yes carbon monox detector in home: Yes firearms in home: No do you feel safe at home: Yes Smoking Status: Never smoker second hand exposure: No alcohol intake: never substance use type: does not use during the past year weight has: remained stable well-balanced diet: daily or most days daily servings fruits/ve-4 caffeine: Yes (rarely) Type(s) of exercise: walking and bicycling frequency: 3-4 times per week Assessment & Plan Assessment and plan (1) Postoperative examination: Status: Acute Plan Advance diet to regular Possible home today
--- NOTE | 2023-10-10 11:39 | CM.DPC ---
DCP Continued: Reviewed EMR and team rounds for pt?s medical status. Per RN, pt waiting for lunch tray to trial diet advancement to dictate discharge. Per RN, pt eager to dc when cleared and no dc needs identified at this time. Plan: Pending pt advancing to mechanical soft diet (lunch tray to be delivered shortly) and toleration, pt may discharge today with spouse. CM Team will continue to follow for coordination of discharge plans. REYES Salcido
--- NOTE | 2023-10-10 16:28 | PC.NURSE ---
Day shift: Dressing changed per Dr Almaguer. Pt tolerated well. Pt and Spouse instructed on how change dressing and voiced understanding.
[2023-10-10] MEDS: ONDANSETRON 4 MG ODT SL (17:05)
--- NOTE | 2023-10-10 17:55 | PC.NURSE ---
Day shift: Paperwork signed and all questions answered. Dr Almaguer aware of small fecks of blood in Pt's loose stools. Left unit via WC at approx 1745. HAs all persoanl items. No new MD scripts. Spouse is driving her home. Pt states I'm so happy to go home today.
== END 2023-10-10 18:00 | disposition home or self-care (01) | DRG 331 ==
PROVIDERS: Admitting Provider Surgery; PCP Family Medicine; Referring Provider Surgery; Visit Provider Surgery
PROC: 0DSB0ZZ Reposition Ileum, Open Approach (ICD-10-PCS; CPT 44620; principal; 2023-10-08 09:45)
PROC: 0DSB0ZZ Reposition Ileum, Open Approach (ICD-10-PCS; CPT 45990; 2023-10-08 09:45)
DX: K94.19 Other complications of enterostomy (principal); E03.9 Hypothyroidism, unspecified
CPT/HCPCS: 44626; 81025; J0136; J1100; J1170; J1885; J2250; J2405; J2543; J2704; J3010

== ENCOUNTER → 2024-02-03 09:14 | Outpatient (CLI) | payer OTHER, SELFPAY ==
--- NOTE | 2024-02-03 11:00 | DI.CT.S_ITS ---
PROCEDURE: CT ABDOMEN PELVIS W CON INDICATIONS: Abdominal pain TECHNIQUE: After the administration of intravenous contrast, axial sections acquired from the lung bases to the pubic symphysis. Coronal and sagittal reformats were performed. For radiation dose reduction, the following was used: automated exposure control, adjustment of mA and/or kV according to patient size. COMPARISON: None. FINDINGS: Image quality: Diagnostic. Lower Chest: No significant findings. ABDOMEN: Liver: No solid mass. Gallbladder: No radiopaque gallstones or wall thickening. Biliary ducts: No biliary dilation. Pancreas: No ductal dilation. Spleen: Size is within normal limits. Adrenal Glands: 9 mm left adrenal nodule. The right adrenal gland appears normal in morphology. Kidneys and Ureters: No hydronephrosis. No solid mass. No complex renal cystic lesion which requires follow up. Stomach and Bowel: Postsurgical changes from prior partial colectomy at the level of the rectum with a surgical suture line at this level. The small and large bowel appear normal in caliber without evidence of bowel obstruction. Peritoneum: No abnormal intraperitoneal fluid. No free air. Ventral Wall: No significant ventral hernia. Focal soft tissue thickening within the anterior abdominal wall the right lower quadrant likely related to scarring. Abdominal Nodes: No retroperitoneal or mesenteric adenopathy by size criteria. Vessels: Aorta and inferior vena cava are normal in size. PELVIS: Pelvic Organs: Unremarkable. Bladder: No bladder wall thickening, accounting for underdistention. Pelvic Nodes: No enlarged lymph nodes. Miscellaneous: No inguinal hernias are seen. Bones: No aggressive osseous abnormality. IMPRESSION: No acute abnormality within the abdomen or pelvis. Dictated by: Justin Payton M.D. on 02/03/2024 at 16:47 Approved by: Justin Payton M.D. on 02/03/2024 at 16:52
== END ==
LOC: CT 09:14
PROVIDERS: PCP Family Medicine; Referring Provider Surgery; Visit Provider Surgery
DX: E27.9 Disorder of adrenal gland, unspecified (principal); R10.2 Pelvic and perineal pain
CPT/HCPCS: 74177; Q9967

== ENCOUNTER → 2024-04-22 12:32 | Outpatient (CLI) | payer OTHER, SELFPAY ==
--- NOTE | 2024-04-22 12:35 | DI.RAD.S_ITS ---
PROCEDURE: HL HYSTEROSAPINGOGRAPHY INDICATIONS: Infertility COMPARISON: None. FINDINGS: Patient had a documented negative test prior to the study. Following speculum insertion, a balloon-tip catheter was inserted into the cervical canal, and secured by inflating the balloon. Contrast was then injected into the endometrial canal. Uterus: The uterine cavity appears normal in size and morphology, without synechiae or masses. Fallopian tubes: Both fallopian tubes fill with contrast, and appear normal in caliber and morphology. There is ready dispersion of contrast into the peritoneal cavity. IMPRESSION: Normal hysterosalpingogram. Dictated by: Mando Chauhan M.D. on 04/22/2024 at 14:35 Approved by: Mando Chauhan M.D. on 04/22/2024 at 14:37
--- NOTE | 2024-05-12 17:17 | P.PCN_ITS ---
Procedures Date/Time Date of procedure: 04/22/24 Time of procedure: 13:30 General Procedure description: Hysterosalpingogram After informed consent was obtained, the patient was placed on the fluoroscopy table on an overturned bedpan. A bivalve speculum was placed into the vagina. A single-tooth tenaculum was placed on the anterior lip of the cervix. The cervix was cleaned x3 with Betadine. The hysterosalpingogram catheter passed e asily into the endometrial cavity and 3 cc of air were injected into the balloon. The bivalve speculum was removed from the vagina. Under direct fluoroscopic examination, 12 cc of Isovue-300 were injected into the uterus and there was immediate filling of the uterine cavity. This was normal in contour. There was immediate spill from both tubes. The HSG catheter balloon was deflated and it was removed from the uterus. The single-tooth tenaculum was removed from the anterior lip of the cervix. The patient tolerated the procedure well. Complications: none
== END ==
LOC: RAD 12:33
PROVIDERS: PCP Family Medicine; Referring Provider Specialist; Visit Provider Specialist
DX: Z31.69 Encounter for other general counseling and advice on procreation (principal)
CPT/HCPCS: 58340; 74740; Q9967